=== PATIENT | male | born 1980 | race African-American/Black ===

== ENCOUNTER → 2023-06-26 11:00 | Outpatient (CLI) | payer MEDICAID, SELFPAY ==
[2023-06-26 18:38] LABS: Amphetamine/Metha Screen,Urine Positive ng/ml (<1000)
[2023-06-26 18:39] LABS: Barbiturates Screen,Urine Negative ng/ml (<200); Benzodiazepines Screen,Urine Negative ng/ml (<200)
[2023-06-26 18:40] LABS: Cannabinoid Screen,Urine Positive ng/ml (<50); Cocaine Screen,Urine Negative ng/ml (<300)
[2023-06-26 18:41] LABS: Methadone Screen,Urine Negative ng/ml (<300)
[2023-06-26 18:42] LABS: Opiate Screen,Urine Negative ng/ml (<300); Phencyclidine Screen,Urine Negative ng/ml (<25)
== END ==
PROVIDERS: PCP Emergency Medicine; Visit Provider Emergency Medicine
DX: M79.2 Neuralgia and neuritis, unspecified (principal)
CPT/HCPCS: 80305

== ENCOUNTER → 2023-07-04 12:00 | Outpatient (CLI) | payer MEDICAID, SELFPAY ==
[2023-07-04 20:07] LABS: Barbiturates Screen,Urine Negative ng/ml (<200)
[2023-07-04 20:10] LABS: Benzodiazepines Screen,Urine Negative ng/ml (<200); Cocaine Screen,Urine Negative ng/ml (<300)
[2023-07-04 20:11] LABS: Cannabinoid Screen,Urine Negative ng/ml (<50); Phencyclidine Screen,Urine Negative ng/ml (<25)
[2023-07-04 20:12] LABS: Methadone Screen,Urine Negative ng/ml (<300)
[2023-07-04 20:13] LABS: Opiate Screen,Urine Positive ng/ml (<300)
[2023-07-04 20:31] LABS: Amphetamine/Metha Screen,Urine Negative ng/ml (<1000)
== END ==
LOC: LAB.DROPOF 07-05 00:04
PROVIDERS: PCP Emergency Medicine; Visit Provider Emergency Medicine
DX: Z79.899 Other long term (current) drug therapy (principal)
CPT/HCPCS: 80305

== ENCOUNTER → 2023-09-03 16:46 | Outpatient (CLI) | payer MEDICAID, SELFPAY ==
[2023-09-03 16:33] LABS: Amphetamine/Metha Screen,Urine Negative ng/ml (<1000)
[2023-09-03 16:34] LABS: Barbiturates Screen,Urine Negative ng/ml (<200); Benzodiazepines Screen,Urine Negative ng/ml (<200)
[2023-09-03 16:36] LABS: Cannabinoid Screen,Urine Negative ng/ml (<50)
[2023-09-03 16:37] LABS: Cocaine Screen,Urine Negative ng/ml (<300)
[2023-09-03 16:38] LABS: Opiate Screen,Urine Negative ng/ml (<300)
[2023-09-03 16:39] LABS: Phencyclidine Screen,Urine Negative ng/ml (<25)
[2023-09-03 16:51] LABS: Methadone Screen,Urine Negative ng/ml (<300)
[2023-09-03 19:26] LABS: Basophils # 0.1 K/mm3 (0-0.2); Basophils % 0.6 % (0.1-2.0); Eosinophils # 0.2 K/mm3 (0.0-0.4); Eosinophils % 2.8 % (0.1-12.0); Hematocrit 50.7 % (42.0-52.0); Hemoglobin 17.6 g/dL (14.1-18.0); Lymphocytes # 2.3 K/mm3 (0.7-4.5); Lymphocytes % 27.6 % (10-50); Mean Corpuscular HGB Conc 34.7 g/dL (31.8-35.4); Mean Corpuscular Hemoglobin 35.8 pg (27.0-31.2); Mean Corpuscular Volume 103.2 fl (80-94); Mean Platelet Volume 9.1 fl (7.4-10.4); Monocytes # 0.5 K/mm3 (0.1-1.0); Monocytes % 6.2 % (1.7-9.3); Neutrophils # 5.2 K/mm3 (1.8-7.8); Neutrophils % 62.8 % (37.0-80.0); Platelet Count 334 K/mm3 (142-424); Red Blood Count 4.92 M/mm3 (4.60-6.20); Red Cell Distribution Width 13.1 % (11.5-17.5); White Blood Count 8.2 K/mm3 (4.8-10.8)
[2023-09-03 20:38] LABS: Alanine Aminotransferase 70 U/L (12-78); Albumin/Globulin Ratio 1.4 (1.1-1.8); Alkaline Phosphatase 88 U/L (38-126); Anion Gap 17.5 mEq/L (5-15); Aspartate Amino Transferase 59 U/L (17-59); Bilirubin,Total 0.7 mg/dl (0.2-1.3); Blood Urea Nitrogen 11 mg/dl (9-20); Calcium 9.8 mg/dl (8.4-10.2); Carbon Dioxide 25 mmol/L (22.0-30.0); Chloride 101 mmol/L (98-107); Chol/HDL Ratio 3.9 (1-3.5); Cholesterol 258 mg/dl (140-200); Estimated Glomerular Filt Rate 92 ml/min (>60); GFR (African American) 111 ML/MIN (>60); Globulin 3.7 g/dL (1.3-3.2); Glucose 153 mg/dl (74-100); HDL Cholesterol 67 mg/dl (40-60); Potassium 4.5 mmoL/L (3.5-5.1); Sodium 139 mmol/L (136-145); Total Protein,Serum 8.7 g/dl (6.3-8.2); Triglycerides 72 mg/dl (30-150); VLDL Cholesterol 14 mg/dL (0-40)
[2023-09-03 20:48] LABS: 25-OH Vitamin D, Total 21.4 ng/mL (30-100)
[2023-09-03 20:50] LABS: Direct LDL Cholesterol 168.16 mg/dL (100-129)
[2023-09-03 21:05] LABS: T4 (Thyroxine) 11.4 ug/dl (5.53-11.0)
[2023-09-03 21:18] LABS: Thyroid Stimulating Hormone 0.93 uIU/mL (0.465-4.68)
[2023-09-04 22:37] LABS: Hemoglobin A1C 5.4 % (4.0-6.0)
== END ==
PROVIDERS: PCP Emergency Medicine; Visit Provider Emergency Medicine
DX: M79.2 Neuralgia and neuritis, unspecified (principal); I10 Essential (primary) hypertension; R73.09 Other abnormal glucose; E55.9 Vitamin D deficiency, unspecified; Z79.899 Other long term (current) drug therapy
CPT/HCPCS: 80053; 80061; 80305; 82306; 83036; 84436; 84443; 85025